=== PATIENT | female | born 1970 | race Caucasian/White ===

== ENCOUNTER → 2016-08-22 | Outpatient (CLI) | payer OTHER ==
--- NOTE | 2016-08-22 14:44 | DIAGNOSTIC IMAGING REPORT ---
C-SPINE ROUTINE 4 OR 5 VIEWS HISTORY:45 yearsFemaleLOCALIZED SWELLING, MASS, OR LUMP OF NECK COMPARISON: None available. TECHNIQUE: 5 radiographic views of the cervical spine. FINDINGS: There is straightening of the normal cervical lordosis. There is no prevertebral soft tissue swelling. No acute fracture, dislocation or significant degenerative changes. Odontoid process and lateral pillars of C1 are intact. No radiopaque foreign body. IMPRESSION: 1. No acute fracture, dislocation or significant degenerative change of the cervical spine. 2. Straightening of the normal cervical lordosis may be secondary to positioning or paraspinal muscle spasm. The above report was generated using voice recognition software. It may contain grammatical, syntax or spelling errors. Electronically signed by: Tyshawn Delcid 08/22/2016 2:42 PM Dictated Date/Time: 08/22/2016 2:40 PM
== END | disposition home or self-care (01) ==
LOC: C.RADPV 14:24
PROVIDERS: ATTEND Nurse Practitioner Family
DX: R22.1 Localized swelling, mass and lump, neck (principal)

== ENCOUNTER → 2016-08-30 | Outpatient (CLI) | payer OTHER ==
[2016-08-30 12:46] LABS: BLOOD UREA NITROGEN 13 mg/dl (7-18); CALCIUM 8.9 mg/dl (8.5-10.1); CARBON DIOXIDE 29 mmol/L (21-32); CHLORIDE 102 mmol/L (98-107); CREATININE 0.83 mg/dl (0.60-1.20); GLUCOSE 75 mg/dl (70-99); POTASSIUM 3.6 mmol/L (3.5-5.1); SODIUM 139 mmol/L (136-145)
[2016-08-30 12:58] LABS: CHOLESTEROL 206 mg/dl (0-200); CHOLESTEROL/HDL RATIO 2.4; HDL CHOLESTEROL 85 mg/dl; LDL CHOLESTEROL CALCULATED 105 mg/dl; TRIGLYCERIDES 79 mg/dl (0-150); VERY LOW DENSITY LIPOPROT CALC 16 mg/dl
== END | disposition home or self-care (01) ==
LOC: C.LABPVFM 08:26
PROVIDERS: ATTEND Nurse Practitioner Family
DX: Z00.00 Encounter for general adult medical examination without abnormal findings (principal)